=== PATIENT | male | born 1955 | race African-American/Black ===

== ENCOUNTER → 2017-04-28 | Emergency (ER) | payer MEDICAID, OTHER ==
[~2017-04-28] VITALS: Ht 180.3 cm; Wt 70.3 kg
[~2017-04-28] MED LIST: AZITHROMYCIN250 MG ORAL
[2017-04-28 13:37] VITALS: BP 149/97
--- NOTE | 2017-04-28 14:17 | Emergency Room Report ---
History of Present Illness General Chief Complaint: Flu Like Symptoms Source: Patient Present Illness HPI [id number] BIBEMS for SOB, cough, fever/chills for 3-4 days. +smoker. Homeless. Denies asthma COPD, CHF, CAD Didnt take any meds at home Denies chest pain, abd pain, weakness, urinary complaints to name a few Allergies: Coded Allergies: No Known Allergies (Unverified , 04/28/17) Patient History Past Medical History: none Past Surgical History: none Pertinent Family History: none Social History: Reports: smoking Immunizations: UTD Reviewed Nursing Documentation: PMH: Agreed, PSxH: Agreed Nursing Documentation-PMH Past Medical History: No Stated History Review of Systems All Other Systems: negative except mentioned in HPI Physical Exam Vital Signs Date Time Temp Pulse Resp B/P Pulse Ox O2 Delivery O2 Flow Rate FiO2 04/28/17 13:32 98.2 92 16 149/97 97 Room Air Sp02 EP Interpretation: reviewed, normal General Appearance: normal inspection, well appearing, no apparent distress, alert, GCS 15, non-toxic Head: normocephalic, atraumatic Eyes: bilateral eye EOMI, bilateral eye PERRL ENT: normal ENT inspection, hearing grossly normal, normal voice Neck: normal inspection, full range of motion, supple, no bony tend Respiratory: normal inspection, lungs clear, normal breath sounds, no rhonchi, no respiratory distress, no retraction, no accessory muscle use, no wheezing, speaking full sentences Cardiovascular #1: regular rate, rhythm, no edema Gastrointestinal: normal inspection, normal bowel sounds, non tender, soft, no guarding, no hernia Musculoskeletal: normal inspection, back normal, normal range of motion, Debi' s Sign negative Neurologic: normal inspection, alert, oriented x3, responsive, weed thinner III-XII nml as tested, motor strength/tone normal, speech normal Psychiatric: normal inspection, judgement/insight normal, mood/affect normal Skin: normal inspection, normal color, no rash Medical Decision Making Diagnostic Impression: Primary Impression: Community acquired pneumonia ER Course SOB, cough, fever/chills, homeless - VSS. Afebrile - Lungs CTAB. No wheezing, rhonchi - Well appearing. No apparent distress at all in ED - CXR: No PNA. - Will tx for CAP given fever/chills, smoking history, and likely poor PMD followup DC Chest X-Ray Diagnostic Results Chest X-Ray Diagnostic Results : Chest X-Ray Ordered: Yes Indication: Shortness of Breath EP Interpretation: Yes Interpretation: no consolidation, no effusion, no pneumothorax, no acute cardiopulmonary disease Impression: No acute disease Interpreting ER Provider: Electronically signed by Dr Skaggs Last Vital Signs Date Time Temp Pulse Resp B/P Pulse Ox O2 Delivery O2 Flow Rate FiO2 04/28/17 13:37 98.2 75 16 149/97 97 Room Air Status: improved Disposition: HOME, SELF-CARE Condition: Improved Scripts Azithromycin* (ZITHROMAX*) 250 Mg Tablet 250 MG ORAL DAILY for 5 Days, #6 TAB 0 Refills Take two tablets by mouth today, then take one tablet by mouth daily for four days Prov: OSWALDO SKAGGS M.D. 04/28/17 Patient Instructions: Community-Acquired Pneumonia, Adult, Pnvk-[id number] OSWALDO SKAGGS M.D. Apr 28, 2017 14:17
[2017-04-28 14:23] VITALS: BP 149/97
--- NOTE | 2017-04-30 10:02 | Diagnostic Imaging Report ---
Indication: Shortness of breath Technique: Single portable AP view of the chest. Findings: Comparison: None. Degenerative changes suggested in lower cervical spine. Mild levoscoliosis lower thoracic spine. The extra pulmonary soft tissues, cardiomediastinal silhouette, pulmonary vasculature and parenchyma, and pleural surfaces are unremarkable. IMPRESSION: Degenerative spondylosis, scoliosis Otherwise negative portable AP chest.
== END | disposition home or self-care (01) ==
LOC: EDBD 13:31 → EDUNIT# 13:31 → EMR 14:30
DX: J18.9 Pneumonia, unspecified organism (principal); Z59.0 Homelessness; F17.200 Nicotine dependence, unspecified, uncomplicated
CPT/HCPCS: 71010; 99283